=== PATIENT | male | born 1965 | race Caucasian/White ===

== ENCOUNTER 2017-10-21 05:16 | Observation (INO) ==
[2017-10-21] MEDS ORDERED: Metoprolol Tartrate 25 MG Tablet PO SCH (05:45)
[2017-10-21] MEDS ORDERED: Chlorhexidine Gluconate 2% 1 Pack (2 Cloths) TOPICAL SCH (05:45)
[2017-10-21] MEDS ORDERED: Chlorhexidine 4% Topical 120 APPLIC/120 ML Bottle TOPICAL SCH (05:45)
[2017-10-21] MEDS ORDERED: ceFAZolin 2 GM/NS 100 ML IV IV.SIG SCH ×2 (06:00)
[2017-10-21] MEDS ORDERED: Sodium Chlor 0.9% Inj 500 ML IV.SIG SCH (06:00)
[2017-10-21] MEDS ORDERED: Propofol Inj 500 MG/50 ML Vial ONE ×3 (06:43→10:07)
[2017-10-21] MEDS ORDERED: ceFAZolin 2 GM Premix Inj 2 GM/50 ML PIGGYBACK IV.SIG ONE (07:27)
[2017-10-21] MEDS ORDERED: Neostigmine Inj 5 MG/5 ML Syringe IV.PUSH ONE (12:00)
[2017-10-21] MEDS ORDERED: Glycopyrrolate Inj 1 MG/5 ML Syringe IV.PUSH ONE (12:00)
[2017-10-21] MEDS ORDERED: Lidocaine PF 1% Inj 5 ML Syringe INFILTRATN ONE (12:00)
[2017-10-21] MEDS ORDERED: Phenylephrine/NS 1000 MCG/10ML Syringe IV.PUSH ONE (12:00)
[2017-10-21] MEDS ORDERED: fentaNYL Citrate Inj 100 MCG/2 ML Ampul ONE (12:05)
--- NOTE | 2017-10-21 12:10 | P.BOP ---
Date of procedure: 10/21/17 Procedure: C3-C4 ACDF Iliac crest autograft Placement of allograft Implants: Depuy zero-p implant (cage and screws) Anesthesia: GETA Surgeon: Kyara Parker MD Estimated blood loss (mL): 50 Pathology: none sent Condition: stable Disposition: PACU
[2017-10-21] MEDS ORDERED: Post-op Orders (for Pharmacy) OTHER STA ×2 (12:11→12:13)
[2017-10-21] MEDS ORDERED: Bisacodyl 10 MG Supp RECTAL PRN (12:13)
[2017-10-21] MEDS ORDERED: *morphine SULFATE 4 MG/ML PERIprocedure ONLY ONE ×4 (12:24→15:18)
--- NOTE | 2017-10-21 12:44 | XR ---
EXAM DATE: 10/21/2017 12:30 PM EDT AGE/SEX: 52 years / Male INDICATIONS: Neck pain. CLINICAL DATA: This is the patient's initial encounter. Patient reports that signs and symptoms have been present for 1 day and indicates a pain score of Nonresponsive. MEDICAL/SURGICAL HISTORY: None. . Prior surgery/plate to c-spine. COMPARISON: [facility], MR CERVICAL SPINE W/O CONTRAST, 09/02/2017. . FINDINGS: Series of intraoperative lateral and AP views of the cervical spine show a anterior fixator from C4 t hrough C7. A metallic marker projects over the C3-4 disc interspace on the first image. Subsequent im ages demonstrate interval placement of an intervertebral fixator at the C3-4 level. CONCLUSION: 1. Existing anterior fixation from C4 through C7. 2. Interval intravertebral fixation at C3-4. Electronically signed by: Salo Corona MD 10/21/2017 12:43 PM EDT
[2017-10-21] MEDS: Senna/Docusate Sodium 8.6/50 MG Tablet PO SCH (21:00)
[2017-10-21] MEDS ORDERED: Fenofibrate 145 MG Tablet PO SCH (21:00)
[2017-10-21] MEDS ORDERED: Senna/Docusate Sodium 8.6/50 MG Tablet PO SCH (21:00)
[2017-10-21] MEDS ORDERED: Lisinopril 20 MG Tablet PO SCH (21:00)
[2017-10-22] MEDS: Morphine Inj 4 MG/ML Vial IV.PUSH PRN ×3 (00:37→07:40)
[2017-10-22] MEDS: Glimepiride 4 MG Tablet PO SCH ×2 (03:26→08:43)
--- NOTE | 2017-10-22 08:28 | P.PNOP ---
Subjective Interval history: Patient resting currently this morning. Patient ambulate around room without significant difficulty. Does complain of mild throat pain but was able to tolerate a full meal last night. Denies any new numbness, tingling or weakness. Does complain of neck and shoulder discomfort this morning. Physical Exam Vital signs: Vital Signs 10/21/17 11:58 10/21/17 12:15 10/21/17 12:30 Temperature 100.1 F H Pulse Rate 85 91 H 90 Respiratory Rate 16 15 17 Blood Pressure 119/58 L 131/68 138/76 Pulse Oximetry 96 98 97 10/21/17 12:45 10/21/17 13:00 10/21/17 13:30 Temperature Pulse Rate 92 H 97 H 96 H Respiratory Rate 16 15 17 Blood Pressure 141/75 H 134/62 143/69 H Pulse Oximetry 96 96 96 10/21/17 14:00 10/21/17 14:30 10/21/17 15:15 Temperature 98.9 F Pulse Rate 95 H 107 H 97 H Respiratory Rate 17 17 17 Blood Pressure 157/99 H 150/93 H 157/85 H Pulse Oximetry 96 96 96 10/21/17 17:56 10/21/17 19:55 10/22/17 00:50 Temperature 98.4 F 98.5 F 98.9 F Pulse Rate 96 H 101 H 111 H Respiratory Rate 18 18 18 Blood Pressure 161/87 H 146/80 H 169/92 H Pulse Oximetry 97 98 97 10/22/17 03:49 Temperature 98.2 F Pulse Rate 113 H Respiratory Rate 18 Blood Pressure 140/74 Pulse Oximetry 96 Intake & Output 10/21/17 10/22/17 10/22/17 18:59 06:59 18:59 Intake Total 1700 / 1700 460 / 460 Output Total 450 / 450 350 / 350 Balance 1250 / 1250 110 / 110 Weight 83.6 kg Intake: IV 100 / 100 100 / 100 Ancef Inj 1,000 MG In NS Inj 100 / 100 100 / 100 100 ML @ 200 mls/hr IV.SIG Q6H CHLOE Rx#:[id number] Oral 360 / 360 Anesthesia Amount 1600 / 1600 Output: Urine 350 / 350 Estimated Blood Loss 50 / 50 Urine Amount (Catheter) 400 / 400 50 400 / 400 Other: # Voids 3 Date of Last Bowel Movement 10/20/17 10/20/17 10/20/17 # Bowel Movements 0 Narrative: awake, alert, no acute distress C-collar removed to change dressing and pull drain. Dressing removed and Will drain removed. Mild drainage expressed with drain removal. No palpable fluid collection. Bilateral upper extremities: 5 out of 5 strength throughout although deltoids to have significant discomfort with testing. Sensation intact. Brisk cap refill. - Urinary Catheter Management 50 Cath placed during this visit: no Results - Labs Laboratory Results - last 24 hr 10/21/17 10/21/17 13:49 21:54 POC Glucose 233 H 288 H - Imaging Impressions Cervical Spine X-Ray 10/21/17 00:00 CONCLUSION: 1. Existing anterior fixation from C4 through C7. 2. Interval intravertebral fixation at C3-4. Assessment and Plan - Assessment and Plan 52-year-old gentleman, POD#1 s/p C3-4 ACDF 1. C-collar at all times except for hygiene 2. Mobilization as tolerated 3. Dressing has been changed and drain removed. Discussed with patient and his at bedside the dressing can be changed as needed. 4. Plan is for subsequent posterior fixation in 2 weeks. Patient is aware of this and I will see him on November 04 for this procedure. 5. Discharge home this morning.
[2017-10-22] MEDS: Senna/Docusate Sodium 8.6/50 MG Tablet PO SCH (08:44)
[2017-10-22] MEDS ORDERED: Multivitamin/Minerals Therapeutic Tablet PO SCH (09:00)
--- NOTE | 2017-10-22 12:01 | P.OP ---
Date of procedure: 10/22/17 Procedure: 1. Anterior cervical decompression via discectomy and osteophytectomy, C3-4 2. Anterior cervical arthrodesis C3-C4 with interbody cage 3. Iliac crest autograft 4. Placement of allograft Implants: Depuy zero-P VA device, interbody cage with integral screws Anesthesia: VAIBHAV Surgeon: Kyara Parker MD Estimated blood loss (mL): 50 Pathology: none sent Operation and Findings: Indications for procedure: Patient is a 52 year old gentleman who presented to my office suffering from signs and symptoms consistent with cervical radiculopathy and associated cervical stenosis at C3-4. Patient previously underwent C4-C7 ACDF. Recommendation for ACDF C3-4 with autograft and allograft placement. In addition, given the large fusion below this level, subsequent posterior stabilization was also planned out a separate surgical encounter. Risks, possible benefits and alternative treatment options were discussed with the patient. At this time he did wish to proceed with the above mentioned procedure. Description of procedure: The patient was brought back to the operating room and placed supine on the operating room table with all bony prominences well- padded. General anesthesia then ensued. A urinary catheter along with normal monitoring leads were placed. Patient's arms were then taped distally to allow for appropriate imaging. Patient was prepped and draped in standard sterile fashion. Preoperative antibiotics were given within 1 hour of incision. A timeout was performed to identify the correct patient, side, site and procedure to be performed. Fluoroscopy was used to localize the site for incision. An approximately 5 cm transverse incision was made in the upper skin crease on the left side. A standard Ellington-Fu approach was performed with dissection carried out medial to the sternal mastoid and medial to the carotid sheath. Blunt finger sweep was utilized for palpation down to the anterior aspect of the spine. An appendiceal retractor was placed. At this time, there were significant scar tissue noted over the plate and prevertebral fascia at the C3- 4 level. This scar tissue was carefully mobilized medially to allow appropriate retraction. The C3-4 disc space was identified on fluoroscopy and verified. Appropriate position just above the previous C4-C7 plate. The longus coli was then mobilized off the C3 vertebral body. A self-retaining retractor was then placed. [place] pins were then placed into the C3 and C4 vertebral body. Distraction was then carried out. A discectomy was performed with the use of Kenroy Haim Mclean, curettes and a high-speed bur. Backside decompression was performed with high-speed bur such that the medial aspect of the uncinate and all osteophytic material removed. The PLL was then removed with the use of curettes and Kerrisons. The underlying dura was found to be free of any compression. Decompression was carried out laterally towards bilateral foramen to ensure bilateral nerve roots were free of compression. At this time, having been satisfied with the decompression, hemostasis was achieved along with copious irrigation. The interbody cage was then sized. I then turned my attention to obtaining iliac crest autograft. The patient had been previously prepped and draped around this area. A small incision was made approximately 2 cm posterior to the ASIS. A [employer] bone harvester was then placed into the iliac crest and advanced into the cancellus bone. This was then advanced into cancellous bone. Several passes were made into the iliac crest in different directions to obtain cancellus bone cores to use as autograft in the cage. This autograft was morselized and placed into the cage. In addition, allograft was placed into the cage to supplement the autograft. The stand-alone device was then impacted into the disc space and distraction was let down. This was found to be highly stable. These were verified to be in appropriate positions on C-arm imaging. Neuro monitoring was without any adverse signal changes. At this time a screw was placed into the C4 vertebral body and the C3 vertebral body. The screws obtained solid purchase. The screws were locked down and final tightened. Radiographs showed the hardware was in good position on AP and lateral imaging with good presybeterian of disc height and cervical lordosis. Copious irrigation was performed. A quarter- inch Will drain was then placed through the incision deep. The platysmal layer was reapproximated with running Vicryl sutures and the subcutaneous tissue was closed with interrupted Vicryl sutures. A subcuticular Monocryl suture was then utilized to close the skin along with Mastisol and Steri- Strips. Sterile dressings were applied and a C collar was placed. Patient was awoken from general anesthesia without complication. It should be noted that the patient remained hemodynamically stable throughout the entire procedure without any neuro monitoring adverse signal changes.
== END 2017-10-22 10:54 | disposition home or self-care (01) ==
LOC: HSDC 05:16 → HSDI 05:16 → N06 15:34
PROVIDERS: ADMIT Orthopaedic Surgery Orthopaedic Surgery of the Spine; ATTEND Orthopaedic Surgery Orthopaedic Surgery of the Spine

== ENCOUNTER 2017-11-04 08:33 | Observation (INO) ==
[2017-11-04] MEDS ORDERED: Metoprolol Tartrate 25 MG Tablet PO SCH (09:15)
[2017-11-04] MEDS ORDERED: Chlorhexidine 4% Topical 120 APPLIC/120 ML Bottle TOPICAL SCH (09:15)
[2017-11-04] MEDS ORDERED: Chlorhexidine Gluconate 2% 1 Pack (2 Cloths) TOPICAL SCH (09:15)
[2017-11-04] MEDS ORDERED: ceFAZolin 2 GM Premix Inj 2 GM/100 ML BAG IV.SIG SCH (09:15)
[2017-11-04] MEDS ORDERED: ceFAZolin 2 GM Premix Inj 2 GM/50 ML PIGGYBACK IV.SIG SCH (10:00)
[2017-11-04] MEDS ORDERED: Sodium Chlor 0.9% Inj 500 ML IV.SIG SCH (10:00)
[2017-11-04] MEDS ORDERED: Scopalamine 1.5 MG Patch T-DERMAL ONE (12:55)
[2017-11-04] MEDS ORDERED: Neostigmine Inj 5 MG/5 ML Syringe IV.PUSH ONE (14:07)
[2017-11-04] MEDS ORDERED: Glycopyrrolate Inj 1 MG/5 ML Syringe IV.PUSH ONE (14:07)
[2017-11-04] MEDS ORDERED: Succinylcholine Inj 100 MG/5 ML Syringe IV.PUSH ONE (14:07)
[2017-11-04] MEDS ORDERED: Phenylephrine/NS 1000 MCG/10ML Syringe IV.PUSH ONE (14:07)
[2017-11-04] MEDS ORDERED: Lidocaine PF 1% Inj 5 ML Syringe INFILTRATN ONE (14:07)
[2017-11-04] MEDS ORDERED: Aluminum/Magnesium/Simethacone Susp 30 ML UDC PO PRN (15:30)
[2017-11-04] MEDS ORDERED: Bisacodyl 10 MG Supp RECTAL PRN (15:30)
[2017-11-04] MEDS ORDERED: Morphine Inj 4 MG/ML Vial IV.PUSH PRN (15:30)
[2017-11-04] MEDS ORDERED: Acetaminophen 325 MG Tablet PO PRN (15:30)
--- NOTE | 2017-11-04 15:33 | P.BOP ---
Date of procedure: 11/04/17 Procedure: Posterior cervical fusion with instrumentation and iliac crest autograft Implants: DTRAX Anesthesia: GETA Surgeon: Kyara Parker MD Estimated blood loss (mL): 20 Pathology: none sent Condition: stable Disposition: PACU
[2017-11-04] MEDS ORDERED: Post-op Orders (for Pharmacy) OTHER STA (15:44)
[2017-11-04] MEDS ORDERED: *morphine SULFATE 10 MG/ML PERIprocedure ONLY ONE (16:01)
[2017-11-04] MEDS ORDERED: fentaNYL Citrate Inj 100 MCG/2 ML Ampul ONE (16:01)
[2017-11-04] MEDS ORDERED: HYDROmorphone PF Inj 2 MG/ML Vial ONE (16:21)
--- NOTE | 2017-11-04 16:30 | XR ---
EXAM DATE: 11/04/2017 4:17 PM EDT AGE/SEX: 52 years / Male INDICATIONS: Posterior fusion C3,C4. CLINICAL DATA: This is the patient's initial encounter. Patient reports that signs and symptoms have been present for 1 day and indicates a pain score of Nonresponsive. MEDICAL/SURGICAL HISTORY: None. Fusion, cervical. COMPARISON: No prior exams available for comparison. FINDINGS: Surgical screws traverse the bodies of C3-4 C4-5, C5-6 with a plate placed anteriorly and e vidence for anterior fusion. CONCLUSION: Intact immediate postsurgical changes. Electronically signed by: Ada Davila MD 11/04/2017 4:29 PM EDT
[2017-11-04] MEDS ORDERED: *Ondansetron Inj 4 MG/2 ML Vial PERIprocedural Use ONLY ONE (16:33)
[2017-11-04] MEDS ORDERED: *Promethazine Inj 25 MG/ML Vial PERIprocedural use ONLY ONE (17:25)
--- NOTE | 2017-11-04 19:33 | ECG ---
Date Performed: 11/04/2017 Time Performed: 09:08:08 PTAGE: 52 years EKG: Sinus rhythm NORMAL ECG NO PREVIOUS TRACING DOCTOR: Jamie Griffin Interpretating Date/Time 11/04/2017 19:31:11
[2017-11-04] MEDS ORDERED: Senna/Docusate Sodium 8.6/50 MG Tablet PO SCH (21:00)
[2017-11-04] MEDS ORDERED: Methocarbamol 500 MG Tablet PO SCH ×2 (21:00)
[2017-11-04] MEDS ORDERED: Glimepiride 4 MG Tablet PO SCH (21:00)
[2017-11-04] MEDS ORDERED: Famotidine 20 MG Tablet PO SCH (21:00)
[2017-11-04] MEDS ORDERED: Lisinopril 20 MG Tablet PO SCH (21:00)
[2017-11-04] MEDS ORDERED: Multivitamin/Minerals Therapeutic Tablet PO SCH (21:00)
[2017-11-04] MEDS ORDERED: Fenofibrate 145 MG Tablet PO SCH (21:00)
[2017-11-05 04:33] VITALS: BP 129/62; PULSE 81; TEMP 97.2; O2SAT 97
[2017-11-05 06:53] VITALS: RESP 18
--- NOTE | 2017-11-05 07:25 | P.PNOP ---
Subjective Interval history: Patient resting comfortably this morning. States his pain is relatively well controlled. Physical Exam Vital signs: Vital Signs 11/04/17 09:26 11/04/17 15:45 11/04/17 16:00 Temperature 98.2 F 97.3 F L Pulse Rate 73 83 86 Respiratory Rate 20 16 14 Blood Pressure 163/86 H 143/80 H 143/80 H Pulse Oximetry 99 99 99 11/04/17 16:15 11/04/17 16:30 11/04/17 16:45 Temperature Pulse Rate 82 67 76 Respiratory Rate 14 24 20 Blood Pressure 154/70 H 156/78 H 158/83 H Pulse Oximetry 99 97 98 11/04/17 17:15 11/04/17 18:26 11/04/17 20:00 Temperature 97.3 F L 97.7 F 98.4 F Pulse Rate 77 63 95 H Respiratory Rate 12 18 18 Blood Pressure 134/68 138/59 L 133/71 Pulse Oximetry 98 96 99 11/05/17 00:00 11/05/17 02:00 11/05/17 04:00 Temperature 97.7 F 97.2 F L Pulse Rate 90 81 Respiratory Rate 18 18 17 Blood Pressure 108/75 129/62 Pulse Oximetry 98 97 11/05/17 06:52 Temperature Pulse Rate Respiratory Rate 18 Blood Pressure Pulse Oximetry Intake & Output 11/04/17 11/05/17 11/05/17 18:59 06:59 18:59 Intake Total 1440 / 1440 680 / 680 Output Total 40 / 40 600 / 600 Balance 1400 / 1400 80 / 80 Weight 81.8 kg Intake: IV 1000 / 1000 200 / 200 LR 1000 mL Inj 1,000 ML @ 30 1000 / 1000 mls/hr IV.SIG .Q24H CHLOE Rx#: [id number] Ancef Inj 1,000 MG In NS Inj 200 / 200 100 ML @ 200 mls/hr IV.SIG Q6H CHLOE Rx#:[id number] Oral 240 / 240 480 / 480 Anesthesia Amount 200 / 200 Output: Urine 600 / 600 Estimated Blood Loss 40 / 40 Other: Weight On Admission 81.8 kg Narrative: Awake, alert, no acute distress Cervical collar in place Posterior dressings are intact without significant drainage. Bilateral upper extremities: 5 out of 5 strength throughout. Sensation appears intact. Brisk cap refill. Results - Imaging Impressions Cervical Spine X-Ray 11/04/17 00:00 CONCLUSION: Intact immediate postsurgical changes. Assessment and Plan - Assessment and Plan 52-year-old gentleman, 2 weeks status post C3-4 ACDF and now postop day 1 status post posterior cervical fusion C3-C4. 1. Cervical collar at all times except for showers. 2. Regular diet as tolerated 3. Hydrocodone for pain control. Patient has prescription at home. 4. Patient should follow-up as scheduled in approximately 2 weeks. Discharge home this morning.
--- NOTE | 2017-12-05 08:35 | P.OP ---
Date of procedure: 11/04/17 Procedure: 1. C3-C4 posterior cervical arthrodesis with instrumentation at C3 and C4 2. Placement of posterior iliac crest autograft 3. Placement of allograft Implants: DTrax Anesthesia: GETA Surgeon: Kyara Parker MD Estimated blood loss (mL): 20 Pathology: none sent Operation and Findings: Indications for procedure: Patient is a 52-year-old gentleman with significant cervical spondylosis with stenosis and radiculopathy with previous C4-C7 ACDF. 2 weeks prior, patient underwent anterior cervical discectomy with instrumented fusion at C3-4. Given he has a history of pseudoarthrosis and extensive solid fusion below the adjacent level, recommendation for anterior and posterior fixation to improve his rate of fusion. Risks, benefits, alternatives were discussed with the patient. At this time he is consented to the procedure. Description of procedure: Patient was brought back to the operating room where general anesthesia then ensued. Patient was then carefully positioned prone on a Paul table with all bony prominences well padded. The arms were placed along the side and the shoulders taped distally to allow adequate visualization of the cervical spine. AP and lateral radiographically images were used to identify the proper level and appropriate exposure for the purposes of cervical fusion. A timeout was performed to verify correct patient, side, site and procedure to be performed. Preoperative antibiotics were given within 1 hour of incision. A small incision was made over the left posterior iliac spine. A series of cores of bone graft were harvested with a special protective use bone harvesting device. The cancellus bone graft was then taken to the back table and mixed with stem cell, NuCel bone graft for the fusion portion of the case. Using AP and lateral radiographs, skin markings were made. On the left side an 18-gauge spinal needle was then placed down to the proper level, C3-4. A small left-sided incision was made. I then used the [employer] DTRAX system. Exposure was performed down to the proper level at C3-4. Under visualization an access chisel was placed onto the C3-4 level. This was confirmed under radiographs to be in appropriate position. This was then placed down into the facet joint at C3-4. A decorticating device was then utilized to decorticate the bone above and below the facet joint including the lateral mass. A retractor was then placed down the access chisel allowing exposure to the joint and exposure to the articular cartilage. A drilling system was then utilized to remove all cartilage from the facet joint and this was followed by a rasp. On the back table, NuCel stem cells were then mixed with the autologous iliac crest bone graft. A combination of both of these were then placed into the appropriate cage. The cage then was impacted into the C3-4 facet on the left and verified to be in appropriate position on AP and lateral radiographs. A transfixation screw was then placed into the cage and verified to have excellent fixation in the facet joint. The backside of the cage was filled with additional bone graft and tamped into position along the lateral masses. The retractor was removed. On the right side, a separate incision was made. Using the same sequence of access to the same level on the right C3-4 facet. An incision was made along visualization for placement of an access chisel to the right C3-4 facet joint and verified to be in appropriate position on AP and lateral radialis. This was followed by decortication with excellent visualization. A final retractor was positioned allowing access and visualization to the facet joint. The facet joint was then drilled and rasped. The joint was prepared and a space created for the cage. The cage was filled on the back table with bone graft and then impacted into appropriate position. A transfixation screw was placed and radiographs, AP and lateral, were found to show appropriate positioning. Additional bone graft was then placed along the posterior aspect of the cage and the facet joint along the lateral mass and tamped into position. The retractor was then removed. The wounds were thoroughly irrigated. Hemostasis was achieved. The deep tissue was then closed with Vicryl sutures and the skin closed with Dermabond. Final radiographs showed excellent positioning of the hardware. Patient was then carefully positioned back supine on his hospital bed. Patient was awoken from general anesthesia without complication. Disposition: Patient was instructed to wear his cervical collar at all times.
== END 2017-11-05 10:07 | disposition home or self-care (01) ==
LOC: HSDC 08:33 → HSDI 08:33 → N06 17:41
PROVIDERS: ADMIT Orthopaedic Surgery Orthopaedic Surgery of the Spine; ATTEND Orthopaedic Surgery Orthopaedic Surgery of the Spine